=== PATIENT | female | born 1975 | race African-American/Black ===

== ENCOUNTER 2018-11-01 12:08 | Emergency (ER) | payer MEDICAID ==
[~2018-11-01] VITALS: Ht 154.9 cm; Wt 105.2 kg
[2018-11-01 12:11] VITALS: BP 176/96
[2018-11-01] MEDS ORDERED: LISINOPRIL5 MG ORAL (12:15)
[2018-11-01] MEDS ORDERED: XARELTO15 MG ORAL (12:15)
[2018-11-01] MEDS ORDERED: METOPROLOL-HCT1 EAC1 ORAL (12:15)
--- NOTE | 2018-11-01 12:18 | NUR ---
ED Nurse Note: PATIENT WALKED INTO ED C/O LEFT LEG PAIN RADIATING FROM THE LOWER BACK PAIN SINCE 10/29/18. PATIENT DENIES ANY INJURY.
[2018-11-01] MEDS ORDERED: Ketorolac 30mg Inj IM ONE (12:30)
[2018-11-01] MEDS ORDERED: Methocarbamol 750mg tab ORAL ONE (12:30)
--- NOTE | 2018-11-01 12:33 | Emergency Room Report ---
History of Present Illness General Chief Complaint: Pain Source: Patient Present Illness HPI 43-year-old female presents to the emergency department complaining of 7 out of 10 severity intermittent pain in the left upper glue with radiation down the posterior thigh x2 days. Patient reports history of intermittent sciatica she states that her symptoms are consistent in character to previously experienced symptoms in the past. Patient states that she believes she aggravated her symptoms as she was doing a lot of walking the day prior. Patient denies trauma or fall she denies night sweats, significant changes in weights, history of neoplastic disease or recent spinal procedures. Denies fevers or chills. prolonged sitting or lying flat aggravates her pain. Minimal relief with Motrin PO. Denies abdominal pain,abdominal tenderness, dysuria, urinary frequency, urgency or hematuria. Allergies: Coded Allergies: No Known Allergies (Unverified , 11/01/18) Patient History Past Medical History: see triage record Past Surgical History: none Pertinent Family History: none Now: No - hysterrectomy nov 2007 Reviewed Nursing Documentation: PMH: Agreed; PSxH: Agreed Nursing Documentation-PMH Hx Hypertension: Yes Review of Systems All Other Systems: negative except mentioned in HPI Physical Exam Vital Signs Date Time Temp Pulse Resp B/P (MAP) Pulse Ox O2 Delivery O2 Flow Rate FiO2 11/01/18 12:11 98.1 60 19 176/96 (122) 98 Room Air Sp02 EP Interpretation: reviewed, normal General Appearance: no apparent distress, alert, GCS 15, non-toxic Head: normocephalic, atraumatic Eyes: bilateral eye normal inspection, bilateral eye PERRL ENT: hearing grossly normal, normal voice Neck: full range of motion Respiratory: lungs clear, normal breath sounds, speaking full sentences Cardiovascular #1: regular rate, rhythm, no edema Gastrointestinal: normal bowel sounds, non tender, soft, non-distended Genitourinary: normal inspection, no CVA tenderness Musculoskeletal: back normal, gait/station normal, normal range of motion, non- tender, tender - Left Paraspinal and upper gluteal TTP, FROM with exacerbation of pain temporarily in certain flexed positions, no LE weakness, pt. is NVI, no erythema, midline bony ttp, step-offs or obvious deformity. Neurologic: alert, oriented x3, responsive, motor strength/tone normal, sensory intact, normal gait, speech normal, grossly normal Psychiatric: judgement/insight normal Lymphatic: no adenopathy Medical Decision Making PA Attestation Dr. Cervantes Is my supervising Physician whom patient management has been discussed with. Diagnostic Impression: Primary Impression: Back pain Qualified Codes: M54.42 - Lumbago with sciatica, left side ER Course 43-year-old female presents to the emergency department complaining of 7 out of 10 severity intermittent pain in the left upper glue with radiation down the posterior thigh x2 days. Patient reports history of intermittent sciatica she states that her symptoms are consistent in character to previously experienced symptoms in the past. Patient states that she believes she aggravated her symptoms as she was doing a lot of walking the day prior. Patient denies trauma or fall she denies night sweats, significant changes in weights, history of neoplastic disease or recent spinal procedures. Denies fevers or chills. prolonged sitting or lying flat aggravates her pain. Minimal relief with Motrin PO. Denies abdominal pain,abdominal tenderness, dysuria, urinary frequency, urgency or hematuria. Ddx considered but are not limited to Fracture, dislocation, contusion, epidural abscess, Sprain/Strain/Spasm Vital signs: are WNL, pt. is afebrile H&PE are most consistent with sciatica ORDERS: X-ray not required at this time, no spinous process tenderness ED INTERVENTIONS: -Robaxin 760mg PO - IM Toradol 30mg. Re-Evaluation: pt. states her pain has subsided with ED interventions DISCHARGE: At this time pt. is stable for d/c to home. Will provide printed patient care instructions, and any necessary prescriptions. Care plan and follow up instructions have been discussed with the patient prior to discharge. Last Vital Signs Date Time Temp Pulse Resp B/P (MAP) Pulse Ox O2 Delivery O2 Flow Rate FiO2 11/01/18 12:11 98.1 60 19 176/96 (122) 98 Room Air Status: improved Disposition: HOME, SELF-CARE Condition: Stable Scripts Acetaminophen* (TYLENOL EXTRA STRENGTH*) 500 Mg Tablet 500 MG ORAL Q6H, #30 TAB 0 Refills Prov: Lucille Samano 11/01/18 Lidocaine (Lidoderm) 1 Each Adh..patch 1 PATCH TOPIC DAILY, #30 PATCH 0 Refills Patch(es) may remain in place for up to 12 hours in any 24-hour period. Prov: Lucille Samano 11/01/18 Methocarbamol* (ROBAXIN-750*) 750 Mg Tablet 750 MG PO QID, #28 TAB 0 Refills Prov: Lucille Samano 11/01/18 Departure Forms: Return to Work Return to Work Date: Nov 05, 2018 Work Restrictions: No Heavy Lifting, No Prolonged Standing Other Restrictions: light duty. May return Sooner if Symptoms have resolved. Return to Full Activity: Nov 08, 2018 Patient Instructions: Sciatica, [id number] Additional Instructions: Take medications as directed. Follow up with a Primary Care Provider in 3-5 days, even if your symptoms have resolved. --Please review list of primary care clinics, if you do not already have a primary care provider Return sooner to ED if new symptoms occur, or current symptoms become worse. Do not drink alcohol, drive, or operate heavy machinery while taking Robaxin/ Muscle Relaxer as this may cause drowsiness. - Please note that this Emergency Department Report was dictated using [employer] lifting engineer technology software, occasionally this can lead to erroneous entry secondary to interpretation by the dictation equipment. Lucille Samano Nov 01, 2018 12:33
[2018-11-01] MEDS ORDERED: ROBAXIN-750750 MG PO (12:34)
[2018-11-01] MEDS ORDERED: TYLENOL EXTRA500 MG ORAL (12:34)
[2018-11-01] MEDS ORDERED: LIDODERM700 M1 TOPIC (12:34)
[2018-11-01 12:41] VITALS: BP 158/69
--- NOTE | 2018-11-01 12:41 | NUR ---
ER DISCHARGE NOTE: Patient is cleared to be discharged per ERMD, pt is aox4, on room air, with stable vital signs. pt was given dc and prescription instructions, pt was able to verbalize understanding, pt id band removed. pt is able to ambulate with steady gait. pt took all belongings.
== END 2018-11-01 12:41 | disposition home or self-care (01) ==
LOC: EMR 12:41
DX: M54.42 Lumbago with sciatica, left side (principal); I10 Essential (primary) hypertension
CPT/HCPCS: 96372; 99283; J1885